=== PATIENT | female | born 1985 | race Caucasian/White ===

== ENCOUNTER 2023-03-27 13:39 | Emergency (ER) | payer OTHER ==
[~2023-03-27] VITALS: Ht 162.6 cm; Wt 52.2 kg
[2023-03-27 13:41] VITALS: BP 124/88
[2023-03-27 14:24] LABS: BASOPHILS % (AUTO) 0.3 % (0.0-5.0); EOSINOPHILS % (AUTO) 1.6 % (0.0-8.0); LYMPHOCYTES % (AUTO) 13.3 % (21.0-51.0); MEAN CORPUSCULAR HEMOGLOBIN 29.9 pg (27.0-33.0); MEAN CORPUSCULAR HGB CONC 32.9 g/dL (32.0-36.0); MEAN CORPUSCULAR VOLUME 90.7 fL (79-99); MONOCYTES % (AUTO) 7.2 % (3.0-13.0); NEUTROPHILS % (AUTO) 77.3 % (40.0-77.0); PLATELET COUNT (AUTO) 254 K/uL (130-400); RED BLOOD CELL COUNT(AUTO) 5.29 MIL/uL (4.00-5.50); RED CELL DISTRIBUTION WIDTH 13.6 % (11.0-15.5); WHITE BLOOD COUNT (AUTO) 12.5 K/uL (4.8-10.8)
[2023-03-27 14:45] LABS: CREATININE 0.6 mg/dL (0.5-1.5); POTASSIUM 3.5 mmol/L (3.5-5.1)
[2023-03-27 14:49] LABS: ALBUMIN 3.8 g/dL (3.5-5.0); TOTAL PROTEIN, SERUM 8.4 g/dL (6.0-8.3)
[2023-03-27 15:21] LABS: APPEARANCE,URINE CLEAR (CLEAR); BILIRUBIN,URINE NEGATIVE (NEGATIVE); COLOR,URINE LIGHT-YELLOW (YELLOW); GLUCOSE, URINE (UA) NEGATIVE (NEGATIVE); KETONES,URINE 150 mg/dL (NEGATIVE); LEUKOCYTE ESTERASE ,URINE 25 Leu/uL (NEGATIVE); NITRATE,URINE NEGATIVE (NEGATIVE); OCCULT BLOOD,URINE NEGATIVE (NEGATIVE); PROTEIN,URINE NEGATIVE (NEGATIVE); UROBILINOGEN,URINE 0.2 mg/dL (0.2-1.0)
[2023-03-27 15:46] LABS: MUCUS,URINE RARE LPF (None Seen); RBC,URINE 0-1 /HPF (0-1); SQUAMOUS EPITHELIAL CELL,UR RARE /HPF (0-2)
[2023-03-27] MEDS ORDERED: PANTOPRAZOLE 40 MG/VIAL IVP ONE (16:30)
[2023-03-27] MEDS ORDERED: MORPHINE 4 MG SYG IVP ONE (16:30)
[2023-03-27] MEDS ORDERED: 0.9%NACL 1000ML 1,000 ML IV ONE ×2 (16:30)
[2023-03-27] MEDS ORDERED: ONDANSETRON 4MG INJ IVP ONE (16:30)
[2023-03-27] MEDS ORDERED: TAMS-1 PO (18:51)
[2023-03-27] MEDS ORDERED: CEPH500B PO (18:51)
== END 2023-03-27 19:22 | disposition home or self-care (01) ==
LOC: EDH 13:39
DX: N20.0 Calculus of kidney (principal); N39.0 Urinary tract infection, site not specified; Z88.1 Allergy status to other antibiotic agents
CPT/HCPCS: 99285; 74176; 96374; 96361; 96375; 80053; 83690; 85025; 81001; 36415; J2405; J2270; C9113